=== PATIENT | female | born 1960 | race Caucasian/White ===

== ENCOUNTER 2022-11-11 11:23 | Emergency (ER) | payer BC ==
[~2022-11-11] VITALS: Ht 175.3 cm; Wt 90.9 kg
[2022-11-11 11:26] VITALS: BP 141/73
[2022-11-11 14:46] LABS: CLARITY,URINE CLEAR (Clear); COLOR,URINE STRAW (Yellow); GLUCOSE, URINE NEGATIVE (Neg); KETONES,URINE NEGATIVE (Neg); LEUKOCYTE ESTERASE ,URINE NEGATIVE (Neg); NITRITES, URINE NEGATIVE (Neg); OCCULT BLOOD,URINE TRACE-INTACT (Neg); PROTEIN,URINE NEGATIVE (Neg); UROBILINOGEN,URINE 0.2 E.U/dL (0.2-1.0)
[2022-11-11 14:49] LABS: UA COLLECTION TYPE CLN CATCH MIDSTREAM
[2022-11-11] MEDS ORDERED: fluconazole 150mg tablet PO ONE (14:55)
[2022-11-11 14:56] LABS: BACTERIA,URINE FEW /HPF (Neg); MUCUS STRANDS NONE SEEN /LPF (Neg); RBC,URINE 0-2 /HPF (0-2); SQUAMOUS EPITHELIAL CELL,UR FEW /LPF (FEW); WBC,URINE 0-4 /HPF (0-4)
== END 2022-11-11 15:10 | disposition home or self-care (01) ==
LOC: ER 11:24
DX: N90.89 Other specified noninflammatory disorders of vulva and perineum (principal)
CPT/HCPCS: 81001; 99283